=== PATIENT | female | born 2000 | race Caucasian/White ===

== ENCOUNTER 2024-02-20 15:32 | Day surgery (SDC) | payer OTHER ==
[2024-02-20] MEDS ORDERED: Bupivacaine HCl 0.5%/Epinephrine 1:200,000/PF 30 ml Vial ONE (15:46)
[2024-02-20] MEDS ORDERED: fentaNYL 50 mcg/mL 1 mL Vial ONE (17:13)
[2024-02-20] MEDS ORDERED: Meperidine HCl/PF 25 MG (1 mL) VIAL ONE (17:23)
== END 2024-02-20 18:00 | disposition home or self-care (01) ==
LOC: CSHSDC 15:32
PROVIDERS: ATTEND Surgery
PROC: 0DTJ4ZZ Resection of Appendix, Percutaneous Endoscopic Approach (ICD-10-PCS; principal; 2024-02-20)
DX: K35.80 Unspecified acute appendicitis (principal)
CPT/HCPCS: 88304; A4649; J2175; J3010